=== PATIENT | male | born 1970 | race Two or more races ===

== ENCOUNTER → 2024-05-23 | Emergency (ER) | payer OTHER ==
[~2024-05-23] VITALS: Ht 167.6 cm; Wt 92.5 kg
[~2024-05-23] MED LIST: COZAAR50 MG PO; GABAPENTIN 300 MG CAPSULE PO STA; KETOROLAC TROMETHAMINE 30 MG VIAL IM STA; KETOROLAC TROMETHAMINE 30 MG VIAL ONE; ORPHENADRINE CITRATE 30 MG/ML AMPUL IM STA; ORPHENADRINE CITRATE 30 MG/ML AMPUL ONE
== END | disposition home or self-care (01) ==
LOC: ER 16:01
DX: M79.2 Neuralgia and neuritis, unspecified (principal)